=== PATIENT | female | born 1955 | race Caucasian/White ===

== ENCOUNTER 2020-09-22 08:19 | Outpatient (REF) | payer MEDICARE, SELFPAY ==
--- NOTE | ~2020-09-22 | MM_ITS ---
EXAMINATION: MM SCREENING DIGITAL BREAST TOMOSYNTHESIS, BILATERAL CLINICAL INFORMATION: Screening. Asymptomatic. The lifetime risk of breast cancer based on the Tyrer-Cuzick Model is 4%. COMPARISON: Mammography: 06/13/2019, 04/16/2018, 03/22/2017, 03/09/2017, 08/12/2015, 09/25/2013 TECHNIQUE: Digital breast tomosynthesis is performed in both the craniocaudal and mediolateral oblique views along with computer-aided detection (CAD). Synthesized 2D images are generated from the tomosynthesis. Additional exaggerated right CC view is provided. FINDINGS: The breasts are heterogeneously dense, which may obscure small masses (ACR BI-RADS breast composition Category c). There is inhomogeneous parenchymal pattern with some rounded asymmetries central inner left breast and smaller asymmetry anterior upper right breast on MLO view similar to multiple prior exams. No significant changes. No developing density or architectural abnormality. No abnormal calcifications. The axilla and skin contours are unremarkable. MM/MM tomosynthesis screening BI IMPRESSION: No significant changes from prior studies. ASSESSMENT: BI-RADS 2: Benign RECOMMENDATION: Routine annual mammography screening. This patient's information was entered into a reminder system with a target due date for their next mammogram.
== END 2020-09-22 08:20 | disposition home or self-care (01) ==
LOC: HO.MAMMO 08:19
PROVIDERS: PCP Family Medicine; Visit Provider Family Medicine
DX: Z12.31 Encounter for screening mammogram for malignant neoplasm of breast (principal)
CPT/HCPCS: 77063; 77067

== ENCOUNTER 2020-10-30 08:38 | Outpatient (REF) | payer MEDICARE, SELFPAY ==
--- NOTE | ~2020-10-30 | MM_ITS ---
EXAMINATION: BONE DENSITOMETRY CLINICAL INDICATION: Osteoporosis. COMPARISON: Baseline BD dated 08/23/2018. TECHNIQUE: Using a ENEFpro DXA System (software version: 13.1) manufactured by [employer], dual-energy x-ray absorptiometry was performed of the lumbar spine and left hip. The images are of good technical quality. Summary results are attached. FINDINGS: AP SPINE L1-L2 (excluding L3 and L4): The data of L1-L4 has been changed to exclude the L3 and L4 vertebral bodies, because degenerative changes at these levels may cause overestimation of lumbar spine density. Current: BMD 0.906 g/cm2, Z-score 0.0, T-score 2.2, osteopenia, 5.0% decrease from baseline (<5% change is not significant). Baseline: BMD 0.954 g/cm2. LEFT FEMUR, NECK: Current: BMD 0.719 g/cm2, Z-score -0.4, T-score -2.3, osteopenia. Baseline: BMD 0.671 g/cm2. LEFT FEMUR, TOTAL: Current: BMD 0.776 g/cm2, Z-score -0.1, T-score -1.8, osteopenia, 8.8% increase from baseline (<5% change is not significant). Baseline: BMD 0.713 g/cm2. IDENTIFIED RISK FACTORS: Osteoporosis, thiazide, menopause. HISTORY OF FRACTURE: None listed. MEDICATIONS: Vitamin D. MM/XR DEXA axial skeleton IMPRESSION: 1. DIAGNOSIS: Osteopenia based on the lowest T-score value of -2.3 in the femoral neck applying World Health Organization criteria. 2. 10-YEAR FRACTURE RISK PREDICTION, FRAX: Major osteoporotic fracture (clinical spine, forearm, hip or shoulder) 11.6%. Hip fracture 2.5%. 3. Treatment Recommendations: NOF guidelines recommend consideration for treatment in postmenopausal women and men age 50 and older presenting with the following: -A hip or vertebral (clinical or morphometric) fracture. -T-score less than or equal to -2.5 at the femoral neck or spine after appropriate evaluation to exclude secondary causes. -Low bone mass at the hip or spine and a 10-year fracture probability by FRAX of greater than or equal to 3% for hip fracture or greater than or equal to 20% for major osteoporotic fracture based on the [place] adapted WHO algorithm. 4. Other Recommendations: All treatment decisions require clinical judgment and consideration of individual patient factors, including patient preferences, comorbidities, previous drug use, risk factors not captured in the FRAX model (e.g. frailty, falls, vitamin D deficiency, increased bone turnover, interval significant decline in bone density) and possible under or overestimation of fracture risk by FRAX. Additional medical evaluation for secondary cause of low bone mineral density may be appropriate. FUTURE SCAN RECOMMENDATION: People with diagnosed cases of osteoporosis or at high risk for fracture should have regular bone mineral density tests. For patients eligible for Medicare, routine testing is allowed once every 2 years. The testing frequency can be increased to one year for patients who have rapidly progressing disease, those who are receiving or discontinuing medical therapy to restore bone mass, or have additional risk factors.
== END 2020-10-30 08:39 | disposition home or self-care (01) ==
LOC: HO.MAMMO 08:38
PROVIDERS: Visit Provider Family Medicine
DX: Z13.820 Encounter for screening for osteoporosis (principal); M81.0 Age-related osteoporosis without current pathological fracture; Z78.0 Asymptomatic menopausal state; Z79.899 Other long term (current) drug therapy
CPT/HCPCS: 77080

== ENCOUNTER 2021-12-18 09:07 | Outpatient (REF) | payer MEDICARE, SELFPAY ==
--- NOTE | ~2021-12-18 | MM_ITS ---
EXAMINATION: MM SCREENING DIGITAL BREAST TOMOSYNTHESIS, BILATERAL CLINICAL INFORMATION: Screening. Asymptomatic. The lifetime risk of breast cancer based on the Tyrer-Cuzick Model is 6%. COMPARISON: Mammography: 09/22/2020, 06/13/2019, 04/16/2018, 03/09/2017 TECHNIQUE: Digital breast tomosynthesis is performed in both the craniocaudal and mediolateral oblique views along with computer-aided detection (CAD). Synthesized 2D images are generated from the tomosynthesis. FINDINGS: The breasts are heterogeneously dense, which may obscure small masses (ACR BI-RADS breast composition Category c). There are no significant masses, abnormal calcifications, or other abnormalities. Parenchymal pattern is similar to prior studies. There is no developing density or architectural abnormality. The axilla and skin contours are unremarkable. No significant changes. MM/MM tomosynthesis screening BI IMPRESSION: No mammographic evidence of malignancy. ASSESSMENT: BI-RADS 1: Negative RECOMMENDATION: Routine annual mammography screening. This patient's information was entered into a reminder system with a target due date for their next mammogram.
== END 2021-12-18 09:08 | disposition home or self-care (01) ==
LOC: HO.MAMMO 09:07
PROVIDERS: PCP Family Medicine; Visit Provider Family Medicine
DX: Z12.31 Encounter for screening mammogram for malignant neoplasm of breast (principal)
CPT/HCPCS: 77063; 77067

== ENCOUNTER → 2022-08-23 15:00 | Outpatient (BNVA) | payer MEDICARE, SELFPAY | PROVIDERS: PCP Family Medicine; Visit Provider Obstetrics & Gynecology | DX: N90.89 Other specified noninflammatory disorders of vulva and perineum (principal); N85.2 Hypertrophy of uterus | CPT/HCPCS: 99202 ==

== ENCOUNTER 2022-09-02 11:19 | Outpatient (REF) | payer MEDICARE, SELFPAY ==
--- NOTE | ~2022-09-02 | US_ITS ---
EXAMINATION: US PELVIS COMPLETE CLINICAL INFORMATION: Uterine hypertrophy; postmenopausal patient. COMPARISON: Pelvic ultrasound dated 02/01/2016. TECHNIQUE: Transabdominal and transvaginal imaging were performed. FINDINGS: The uterus is of heterogeneous echotexture, measuring 13.0 x 9.6 x 10.3 cm. The uterus is anteverted and anteflexed. The endometrial stripe is not seen due to uterine fibroid disease. FIBROIDS: There is 1 fibroid seen. 1. Location: Upper rightward uterine body. Size: 9.3 x 8.2 x 7.8 cm. Prior: 8.6 x 6.6 x 7.3 cm. Fibroid characteristics: Heterogeneous echotexture. The right ovary is not visualized. The left ovary measures 2.5 x 1.4 x 1.4 cm for a volume of 2.5 mL. There is no pelvic free fluid. No adnexal mass is seen. US/US pelvic and transvaginal IMPRESSION: 1. A large uterine fibroid is redemonstrated. 2. The imaged segment is not visualized. 3. The right ovary is nonvisualized.
== END 2022-09-02 11:20 | disposition home or self-care (01) ==
LOC: HO.US 11:19
PROVIDERS: PCP Family Medicine; Visit Provider Obstetrics & Gynecology
DX: N85.2 Hypertrophy of uterus (principal)
CPT/HCPCS: 76830; 76856

== ENCOUNTER 2022-09-19 08:06 | Outpatient (REF) | payer MEDICARE, SELFPAY | END 2022-09-19 08:07 | disposition home or self-care (01) | LOC: HO.LAB 08:06 | PROVIDERS: PCP Family Medicine; Visit Provider Obstetrics & Gynecology | DX: N90.89 Other specified noninflammatory disorders of vulva and perineum (principal); D25.9 Leiomyoma of uterus, unspecified | CPT/HCPCS: 56605; 56606; 88305; 88312; 99212 ==

== ENCOUNTER → 2022-10-03 08:21 | Outpatient (BNVA) | payer MEDICARE, SELFPAY | PROVIDERS: PCP Family Medicine; Visit Provider Obstetrics & Gynecology | DX: L28.0 Lichen simplex chronicus (principal); D25.9 Leiomyoma of uterus, unspecified | CPT/HCPCS: 99212 ==

== ENCOUNTER 2023-01-31 07:18 | Outpatient (REF) | payer MEDICARE, SELFPAY | END 2023-01-31 07:19 | disposition home or self-care (01) | LOC: HO.MAMMO 07:18 | PROVIDERS: PCP Family Medicine; Visit Provider Family Medicine | DX: Z12.31 Encounter for screening mammogram for malignant neoplasm of breast (principal) | CPT/HCPCS: 77063; 77067 ==

== ENCOUNTER → 2023-01-31 07:30 | Outpatient (BNV) | payer MEDICARE, SELFPAY | PROVIDERS: PCP Family Medicine; Visit Provider Radiology Diagnostic Radiology | DX: Z12.31 Encounter for screening mammogram for malignant neoplasm of breast (principal) | CPT/HCPCS: 77063; 77067 ==

== ENCOUNTER 2024-02-06 07:19 | Outpatient (REF) | payer MEDICARE, SELFPAY ==
--- NOTE | ~2024-02-06 | MM_ITS ---
EXAMINATION: MM SCREENING DIGITAL BREAST TOMOSYNTHESIS, BILATERAL CLINICAL INFORMATION: Screening. Asymptomatic. COMPARISON: Mammography: Comparison is made with available priors TECHNIQUE: Digital breast mammography with tomosynthesis is performed in both the craniocaudal and mediolateral oblique views along with computer-aided detection (CAD). FINDINGS: The breasts are extremely dense, which lowers the sensitivity of mammography (ACR BI-RADS breast composition Category d). There are no significant masses, abnormal calcifications, or other abnormalities. MM/MM tomosynthesis screening BI IMPRESSION: No mammographic evidence of malignancy. ASSESSMENT: BI-RADS BI-RADS 1 - Negative RECOMMENDATION: Routine annual mammography screening. 1 year F/U This examination should not preclude the clinical evaluation of a suspicious palpable abnormality. This patient's information was entered into a reminder system with a target due date for their next mammogram. Electronically signed by: Kristy Silver DO 02/14/2024 12:20 PM [email or web address]
== END 2024-02-06 07:20 | disposition home or self-care (01) ==
LOC: HO.MAMMO 07:19
PROVIDERS: PCP Family Medicine; Visit Provider Family Medicine
DX: Z12.31 Encounter for screening mammogram for malignant neoplasm of breast (principal)
CPT/HCPCS: 77063; 77067

== ENCOUNTER → 2024-02-06 07:30 | Outpatient (BNV) | payer MEDICARE, SELFPAY | PROVIDERS: PCP Family Medicine; Visit Provider Internal Medicine | DX: Z12.31 Encounter for screening mammogram for malignant neoplasm of breast (principal) | CPT/HCPCS: 77063; 77067 ==

== ENCOUNTER 2024-04-05 08:24 | Outpatient (REF) | payer MEDICARE, SELFPAY ==
--- NOTE | ~2024-04-05 | MM_ITS ---
EXAMINATION: Dual-Energy X-ray Absorptiometry - Bone Density Study HISTORY: Estrogen deficiency TECHNIQUE: [facility] Dual energy absorptiometry (DEXA) of the lumbar spine, total left hip, and femoral neck was performed. COMPARISON: Comparison is made with the prior examination dated 10/30/2020. FINDINGS: The bone mineral density of the lumbar spine is 0.954 with a T-score of -1.8, and a Z-score of 0.4. This represents a BMD change of -6.0% compared to the prior exam. This is statistically significant. The bone mineral density of the left total hip is 0.770 with a T-score of -1.9, and a Z-score of 0.0. This represents BMD change of -0.8% compared to the prior exam. This is not statistically significant. The bone mineral density of the left femoral neck is 0.724 with a T-score of -2.3, and a Z-score of 0.2. This represents BMD change of 0.7% compared to the prior exam. FRACTURE RISK: The FRAX index suggests a ten year probability of major osteoporotic fracture of 12.6%, and of hip fracture 3.1%. MM/XR DEXA axial skeleton IMPRESSION: Based on bone mineral density, the diagnosis is consistent with osteopenia. All bone density values are in grams per centimeter squared. At this facility, the least significant change in BMD with 95% confidence is 0.022 at the lumbar spine, 0.027 at the hip, and 0.023 at the distal 1/3 radius. Electronically signed by: Michael Cunha MD 04/09/2024 09:44 AM EST
--- OUTSIDE RECORDS SUMMARY | 2024-04-05 08:31 | XMS_ITS | Data Portability ---
Author Organization [facility], , [facility] Address [address] [place] [address] Care Team Providers Care Restorative Care Technician Name Role Phone ELADIO CHAPIN Primary Care Provider [facility] Banking Pin Adjuster [facility] Panelboard Operator AGUSTIN BRASWELL Kicking Machine Operator REVA MILLER Kicking Machine Operator [facility] Dermatolo gist Assessment No assessment recorded. Plan of Treatment Reminders Order Date Submit Date Provider Last Modified By Organization Details Last Modified Time Details Appointments LAB Follow -Up 2024 07:50A M [facility] Lab Not available Not available Not available Medica l Manage ment 15 2024 08:15A M Eladio Chapin MD Not available Not available Not available Lab BMP, serum or plasma 2022 023 [facility], [address] [place] [address], [id number], 01/11/2023 12:00:25 lipid panel, serum 2022 023 [facility], [address] [place] [address], [address], 01/11/2023 12:00:26 TSH, serum or plasma 2022 023 [facility], [address] [place] [address], [id number], 01/11/2023 16:00:27 lipid panel, serum 2022 024 [facility], [address] [place] [address], [id number], 07/11/2023 12:49:12 BMP, serum or plasma 2023 024 [facility], [address] [place] [address], [id number], 02/13/2024 12:17:51 lipid panel, serum 2023 024 [facility], [address] [place] [address], [id number], 02/13/2024 12:17:52 TSH, serum or plasma 2023 024 [facility], [address] [place] [address], 16569, 02/13/2024 11:47:38 lipid panel, serum [address] [facility], [address] [place] [address], 37[address], 02/20/2024 08:53:08 BMP, serum or plasma [address] [facility], [address] [place] [address], 12227, 02/20/2024 08:53:08 BMP, serum or plasma [address] [facility], [address] [place] [address], 84960, 02/20/2024 08:55:31 lipid panel, serum [address] [facility], [address] [place] [address], 54534, 02/20/2024 08:55:32 TSH, serum or plasma [address] [facility], [address] [place] [address], [id number], 02/20/2024 08:55:31 Referral hand surgeo n referr al - 67 y/o with R fourth trigge r finger nonres olving with inject ion please assess 2022 023 trevon Ventura MD, [address] [place], [address], 11/18/2022 14:22:53 dermat ologis t referr al - Referr al for skin monito ring 2022 023 [facility], [address] , [place], [address], 10/20/2022 16:21:23 Procedures None record ed. Surgeries None record ed. Imaging MAMMO, screen ing, tomosy nthesi s, bilate ral 2022 023 [facility], [address] [place] [address] [place], [id number], 03/20/2023 16:28:45 MAMMO, screen ing, tomosy nthesi s, bilate ral 2023 024 [facility], [address] [place] [address] [place], [id number], 03/29/2024 11:19:25 bone densit y - last scan 1 2023 024 [email or web address] [facility], [address] [facility], [place], [id number], 02/20/2024 12:52:19 MAMMO, screen ing, tomosy nthesi s, bilate ral 2023 [facility]25 [facility] [address] [place] [address] [place], [address], 02/20/2024 09:06:19 Medication Orders None record ed. Patient TargetsNo targets recorded. Patient Instructions Encounter Date Encounter Id Patient Instructions Last Modified By Organization Details Last Modified Time 07/27/2022 [id number] -Schedule with Dr. Ventura - had injection, only partial relief, questioning surgery (would like to wait for Dr. Ventura) Meagan Ventura MD [address] [place] [phone] Ph. -Shingrix is two vaccines by 2-6 months -It is given at the pharmacy; please go there to receive it -Once you have both you are done (it is 90% effective) -The most common side effect is arm redness around the injection site and arm soreness. -Fasting labwork (nothing to eat/drink for 12 hours prior to appointment except water) -Wellness visit in 6 months Not available 07/27/2022 08:14:46 01/17/2023 [id number] advance directives: care instructions Not available 01/17/2023 10:41:33 preventing falls : care instructions Not available 01/17/2023 10:41:33 hearing loss: care instructions Not available 01/17/2023 10:41:33 well visit, over 65: care instructions Not available 01/17/2023 10:41:33 -Mammogram - max Allred to schedule -Shingrix is two vaccines by 2-6 months -It is given at the pharmacy; please go there to receive it when you're ready -Once you have both you are done (it is 90% effective) -The most common side effect is arm redness around the injection site and arm soreness. -Please get the updated COVID booster (should be at least 4 months from last booster and 3-4 months from any episode of COVID) -Fasting labwork (nothing to eat/drink for 12 hours prior to appointment except water) in 6 months Not available 01/17/2023 10:53:06 02/20/2024 [id number] advance directives: care instructions Not available 02/20/2024 08:53:08 preventing falls : care instructions Not available 02/20/2024 08:53:08 hearing loss: care instructions Not available 02/20/2024 08:53:08 well visit, over 65: care instructions Not available 02/20/2024 08:53:08 -Call for bone density: [facility] ([facility]) [address] [place] [address] Ph. -Shingrix is two vaccines by 2-6 months -It is given at the pharmacy; please go there to receive it when you're ready -Once you have both you are done (it is 90% effective) -The most common side effect is arm redness around the injection site and arm soreness. -Search 'movement meditations' for non-sitting options Not available 02/20/2024 08:59:51 Reason for Referral Media Technician Referral for N eoplasm of uncertain behavior of skin Referral for skin monitoring Referring Physician: Eladio Chapin [facility], Encounter Date: 07/27/2022 Hand Surgeon Referral for Ac quired trigger finger of right ring finger 67 y/o with R fourth trigger finger nonresolving with injection please assess Referring Physician: Eladio Chapin [facility], Encounter Date: 07/27/2022 Results Created Date Observation Date Name Description Value Unit Range Abnormal Flag Note LastModifiedBy Organization Detail LastModifiedTime 07/12/1907/12/2022 COMP. METAB OLIC PANEL glucose 99 mg/dL 70-100 Not Available [address], [address], 07/12/2022 10:27:15 07/12/19 23 07/12/2022 COMP. METAB OLIC PANEL BUN 18 mg/dL 7-18 Not Available [address], [address], 07/12/2022 10:27:15 07/12/19 23 07/12/2022 COMP. METAB OLIC PANEL creatinine 0.9 mg/dL 0.8-1. 3 Not Available [address], [address], 07/12/2022 10:27:15 04/10/07/12/2022 COMP. METAB OLIC PANEL B/C 20.0 ratio Not Available [address], [address], 07/12/2022 10:27:15 07/12/1907/12/2022 COMP. METAB OLIC PANEL GFR >=60ML /MIN mL/mi n normal >=60m L/min - Cori l or midly reduc ed <60mL /min- Decre ased kidne y funct ion <15mL /min - Kidne y failu re [facility] calcu lates estim ated Glome rular Filtr ation Rate (eGFR ) using the Chron ic Kidne y Disea se Epide miolo gy Colla borat ion (CKD- EPI) Equat ion (Daniel r et. al 2020) as recom ayo d by the Natio nal Kidne y Found ation . eGFR is based on age, serum creat inine , and sex. CKD-E PI does not calcu late eGFR by race, does not apply to child elsa (age <18 years ), and shoul d not be used in pregn katelyn. Not Available [address], [address], 07/12/2022 10:27:15 07/12/1907/12/2022 COMP. METAB OLIC PANEL sodium 144 mmol/ L 136-14 5 Not Available [address], [address], 07/12/2022 10:27:15 07/12/19 23 07/12/2022 COMP. METAB OLIC PANEL potassium 3.9 mmol/ L 3.5-5. 1 Not Available [address], [address], 07/12/2022 10:27:15 07/12/19 23 07/12/2022 COMP. METAB OLIC PANEL chloride 107 mmol/ L 96-107 Not Available [address], 85[address], 07/12/2022 10:27:15 07/12/19 23 07/12/2022 COMP. METAB OLIC PANEL anion gap 11.5 5.0-15 .0 Not Available [address], [address], 07/12/2022 10:27:15 07/12/19 23 07/12/2022 COMP. METAB OLIC PANEL CO2 26 mmol/ L 21-32 Not Available [address], [address], 07/12/2022 10:27:15 07/12/19 23 07/12/2022 COMP. METAB OLIC PANEL calcium 9.1 mg/dL 8.5-10 .3 Not Available [address], [address], 07/12/2022 10:27:15 07/12/19 23 07/12/2022 COMP. METAB OLIC PANEL total protein 6.7 g/dL 6.4-8. 2 Not Available [address], [address]64, 07/12/2022 10:27:15 07/12/19 23 07/12/2022 COMP. METAB OLIC PANEL albumin 4.0 g/dL 3.4-5. 0 Not Available [address], [address], 07/12/2022 10:27:15 07/12/19 23 07/12/2022 COMP. METAB OLIC PANEL globulin 2.7 g/dL Not Available [address], [address], 07/12/2022 10:27:15 07/12/19 23 07/12/2022 COMP. METAB OLIC PANEL A/G 1.5 ratio 0.8-2. 0 Not Available [address], [address], 07/12/2022 10:27:15 07/12/19 23 07/12/2022 COMP. METAB OLIC PANEL total bilirubin 0.50 mg/dL 0.00-1 .00 Not Available [address], [address], 07/12/2022 10:27:15 07/12/19 23 07/12/2022 COMP. METAB OLIC PANEL AST 16 U/L 0-37 Not Available [address], 46[address], 07/12/2022 10:27:15 07/12/19 23 07/12/2022 COMP. METAB OLIC PANEL ALT 19 U/L 6-63 Not Available [address], [address], 07/12/2022 10:27:15 07/12/19 23 07/12/2022 COMP. METAB OLIC PANEL alk. phos. 60 U/L 50-136 Not Available [address], [address], 07/12/2022 10:27:15 07/12/19 23 07/12/2022 LIPID PANEL cholesterol 256 mg/dL <200 mg/dl Jeff able 200-2 39 mg/dl Borde rline High >240 mg/dl High Not Available [address], [address], 07/12/2022 10:27:17 07/12/19 23 07/12/2022 LIPID PANEL triglyceride s 55 mg/dL <150 mg/dL Cori l 150-1 99 mg/dL Borde rline High 200-4 99 mg/dL High >500 mg/dL Very High Not Available [address], [address]69, 07/12/2022 10:27:17 07/12/1907/12/2022 LIPID PANEL direct HDL 90 mg/dL <40 mg/dl - Major Risk for CHD >60 mg/dl - Negat sully Risk for CHD Not Available [address], [address], 07/12/2022 10:27:17 07/12/19 23 07/12/2022 LDL - CALCU LATED LDL - calculated 155.0 RISK CATEG ORY LDL GOAL _ CHD or CHD Risk Equiv alent s <100 mg/dl (10-y ear risk >20%) 2+ Risk Facto rs <130 mg/dl (10-y ear risk <= 20%) 0-1 Risk Facto r??? <160 mg/dl ??? Almos t all peopl e with 0-1 risk facto r have a 10 year risk <10%, thus 10 year risk asses ment in peopl e with 0-1 risk facto r is not roberta castillo. Not Available [address], [address], 07/12/2022 10:27:18 01/12/2001/11/2023 BASIC METAB OLIC PANEL glucose 100 mg/dL 70-100 Not Available [address], [address], 01/11/2023 12:00:24 01/12/2001/11/2023 BASIC METAB OLIC PANEL BUN 14 mg/dL 7-18 Not Available [address], [address], 01/11/2023 12:00:24 01/12/2001/11/2023 BASIC METAB OLIC PANEL creatinine 0.9 mg/dL 0.8-1. 3 Not Available [address], [address], 01/11/2023 12:00:24 01/12/2001/11/2023 BASIC METAB OLIC PANEL B/C 15.6 ratio Not Available [address], [address], 01/11/2023 12:00:24 01/12/20 23 01/11/2023 BASIC METAB OLIC PANEL GFR >=60ML /MIN mL/mi n normal >=60m L/min - Cori l or midly reduc ed <60mL /min- Decre ased kidne y funct ion <15mL /min - Kidne y failu re [facility] calcu lates estim ated Glome rular Filtr ation Rate (eGFR ) using the Chron ic Kidne y Disea se Epide miolo gy Colla borat ion (CKD- EPI) Equat ion (Daniel r et. al 2020) as recom ayo d by the Natio nal Kidne y Found ation . eGFR is based on age, serum creat inine , and sex. CKD-E PI does not calcu late eGFR by race, does not apply to child elsa (age <18 years ), and shoul d not be used in pregn katelyn. Not Available [address], [address], 01/11/2023 12:00:24 01/12/2001/11/2023 BASIC METAB OLIC PANEL sodium 144 mmol/ L 136-14 5 Not Available [address], [address], 01/11/2023 12:00:24 01/12/2001/11/2023 BASIC METAB OLIC PANEL potassium 3.7 mmol/ L 3.5-5. 1 Not Available [address], [address], 01/11/2023 12:00:24 01/12/2001/11/2023 BASIC METAB OLIC PANEL chloride 106 mmol/ L 96-107 Not Available [address], [address]14, 01/11/2023 12:00:24 01/12/2001/11/2023 BASIC METAB OLIC PANEL anion gap 10.9 5.0-15 .0 Not Available [address], [address], 01/11/2023 12:00:24 01/12/20 23 01/11/2023 BASIC METAB OLIC PANEL CO2 27 mmol/ L 21-32 Not Available [address], [address], 01/11/2023 12:00:24 01/12/2001/11/2023 BASIC METAB OLIC PANEL calcium 9.3 mg/dL 8.5-10 .3 Not Available [address], [address], 01/11/2023 12:00:24 01/12/20 23 01/11/2023 LIPID PANEL cholesterol 249 mg/dL <200 mg/dl Jeff able 200-2 39 mg/dl Borde rline High >240 mg/dl High Not Available [address], [address], 01/11/2023 12:00:26 01/12/20 23 01/11/2023 LIPID PANEL triglyceride s 93 mg/dL <150 mg/dL Cori l 150-1 99 mg/dL Borde rline High 200-4 99 mg/dL High >500 mg/dL Very High Not Available [address], [address], 01/11/2023 12:00:26 01/12/2001/11/2023 LIPID PANEL direct HDL 90 mg/dL <40 mg/dl - Major Risk for CHD >60 mg/dl - Negat sully Risk for CHD Not Available [address], [address], 01/11/2023 12:00:26 01/12/20 23 01/11/2023 LDL - CALCU LATED LDL - calculated 140.4 RISK CATEG ORY LDL GOAL _ CHD or CHD Risk Equiv alent s <100 mg/dl (10-y ear risk >20%) 2+ Risk Facto rs <130 mg/dl (10-y ear risk <= 20%) 0-1 Risk Facto r??? <160 mg/dl ??? Almos t all peopl e with 0-1 risk facto r have a 10 year risk <10%, thus 10 year risk asses ment in peopl e with 0-1 risk facto r is not roberta chouy. Not Available [address], [address], 01/11/2023 12:00:27 01/12/20 23 01/11/2023 TSH TSH 1.41 uIU/m L 0.50-6 .00 The Ameri can Colle ge of Endoc rinol ogy and Ameri can Thyro id Assoc iatio n recom mend goal TSH value s betwe en 0.4-4 .0 mIU/m L. Not Available [address], [address], 01/11/2023 16:00:26 01/12/20 23 01/17/2023 VITAM IN D 25-HY DROXY TOTAL vitamin D 25-hydroxy EIA 42.4 NG/mL 20.0-9 9.9 Thera py is based on measu remen t of total 25-OH D, with level s less than 20 ng/mL indic ative of Vitam in D defic iency . Level s betwe en 20ng/ mL and 30 ng/mL sugge st insuf ficie ncy. Optim al Level s are great er than 30 ng/mL . Not Available [address], [address], 01/17/2023 14:16:27 07/11/19 24 07/11/2023 COMP. METAB OLIC PANEL glucose 92 mg/dL 70-100 Not Available [address], [address], 07/11/2023 12:49:10 07/11/19 24 07/11/2023 COMP. METAB OLIC PANEL BUN 22 mg/dL 7-18 high Not Available [address], [address], 07/11/2023 12:49:10 04/09/07/11/2023 COMP. METAB OLIC PANEL creatinine 0.8 mg/dL 0.8-1. 3 Not Available [address], [address], 07/11/2023 12:49:10 07/11/19 24 07/11/2023 COMP. METAB OLIC PANEL B/C 27.5 ratio Not Available [address], [address], 07/11/2023 12:49:10 07/11/19 24 07/11/2023 COMP. METAB OLIC PANEL GFR >=60ML /MIN mL/mi n normal >=60m L/min - Cori l or midly reduc ed <60mL /min- Decre ased kidne y funct ion <15mL /min - Kidne y failu re [facility] calcu lates estim ated Glome rular Filtr ation Rate (eGFR ) using the Chron ic Kidne y Disea se Epide miolo gy Colla borat ion (CKD- EPI) Equat ion (Daniel r et. al 2020) as recom ayo d by the Natio nal Kidne y Found ation . eGFR is based on age, serum creat inine , and sex. CKD-E PI does not calcu late eGFR by race, does not apply to child elsa (age <18 years ), and shoul d not be used in pregn katelyn. Not Available [address], [address], 07/11/2023 12:49:10 07/11/1907/11/2023 COMP. METAB OLIC PANEL sodium 144 mmol/ L 136-14 5 Not Available [address], [address], 07/11/2023 12:49:10 07/11/19 24 07/11/2023 COMP. METAB OLIC PANEL potassium 4.0 mmol/ L 3.5-5. 1 Not Available [address], [address], 07/11/2023 12:49:10 07/11/19 24 07/11/2023 COMP. METAB OLIC PANEL chloride 106 mmol/ L 96-107 Not Available [address], [address], 07/11/2023 12:49:10 07/11/19 24 07/11/2023 COMP. METAB OLIC PANEL anion gap 11.1 5.0-15 .0 Not Available [address], [address], 07/11/2023 12:49:10 07/11/19 24 07/11/2023 COMP. METAB OLIC PANEL CO2 27 mmol/ L 21-32 Not Available [address], [address], 07/11/2023 12:49:10 07/11/19 24 07/11/2023 COMP. METAB OLIC PANEL calcium 9.2 mg/dL 8.5-10 .3 Not Available [address], [address], 07/11/2023 12:49:10 07/11/19 24 07/11/2023 COMP. METAB OLIC PANEL total protein 6.7 g/dL 6.4-8. 2 Not Available [address], [address], 07/11/2023 12:49:10 07/11/19 24 07/11/2023 COMP. METAB OLIC PANEL albumin 3.9 g/dL 3.4-5. 0 Not Available [address], 249[address], 07/11/2023 12:49:10 07/11/19 24 07/11/2023 COMP. METAB OLIC PANEL globulin 2.8 g/dL Not Available [address], [address], 07/11/2023 12:49:10 07/11/19 24 07/11/2023 COMP. METAB OLIC PANEL A/G 1.4 ratio 0.8-2. 0 Not Available [address], [address], 07/11/2023 12:49:10 07/11/19 24 07/11/2023 COMP. METAB OLIC PANEL total bilirubin 0.40 mg/dL 0.00-1 .00 Not Available [address], 07[address], 07/11/2023 12:49:10 07/11/19 24 07/11/2023 COMP. METAB OLIC PANEL AST 14 U/L 0-37 Not Available [address], 25583, 07/11/2023 12:49:10 07/11/19 24 07/11/2023 COMP. METAB OLIC PANEL ALT 14 U/L 6-63 Not Available [address], [address], 07/11/2023 12:49:10 07/11/19 24 07/11/2023 COMP. METAB OLIC PANEL alk. phos. 63 U/L 50-136 Not Available [address], [address], 07/11/2023 12:49:10 07/11/19 24 07/11/2023 LIPID PANEL cholesterol 295 mg/dL <200 mg/dl Jeff able 200-2 39 mg/dl Borde rline High >240 mg/dl High Not Available [address], 67[address], 07/11/2023 12:49:12 07/11/19 24 07/11/2023 LIPID PANEL triglyceride s 79 mg/dL <150 mg/dL Cori l 150-1 99 mg/dL Borde rline High 200-4 99 mg/dL High >500 mg/dL Very High Not Available [address], [address], 07/11/2023 12:49:12 07/11/19 24 07/11/2023 LIPID PANEL direct HDL 94 mg/dL <40 mg/dl - Major Risk for CHD >60 mg/dl - Negat sully Risk for CHD Not Available [address], [address], 07/11/2023 12:49:12 07/11/19 24 07/11/2023 LDL - CALCU LATED LDL - calculated 185.2 RISK CATEG ORY LDL GOAL _ CHD or CHD Risk Equiv alent s <100 mg/dl (10-y ear risk >20%) 2+ Risk Facto rs <130 mg/dl (10-y ear risk <= 20%) 0-1 Risk Facto r??? <160 mg/dl ??? Almos t all peopl e with 0-1 risk facto r have a 10 year risk <10%, thus 10 year risk asses ment in peopl e with 0-1 risk facto r is not roberta castillo. Not Available [address], [address], 07/11/2023 12:49:13 02/13/20 24 02/13/2024 CBC WBC 3.98 K/??L 3.98-1 0.04 Not Available [address], [address], 02/13/2024 09:29:37 02/13/20 24 02/13/2024 CBC RBC 4.21 M/??L 3.93-5 .22 Not Available [address], [address], 02/13/2024 09:29:37 02/13/20 24 02/13/2024 CBC HGB 13.5 g/dL 11.2-1 5.7 Not Available [address], [address]96, 02/13/2024 09:29:37 11/12/02/13/2024 CBC HCT 41.5 % 34.1-4 4.9 Not Available [address], [address]97, 02/13/2024 09:29:37 02/13/20 24 02/13/2024 CBC MCV 98.6 fL 79.4-9 4.8 high Not Available [address], 85872, 02/13/2024 09:29:37 02/13/20 24 02/13/2024 CBC MCH 32.1 pg 25.6-3 2.2 Not Available [address], 11984, 02/13/2024 09:29:37 02/13/20 24 02/13/2024 CBC MCHC 32.5 g/dL 32.2-3 5.5 Not Available [address], [address]221, 02/13/2024 09:29:37 02/13/2002/13/2024 CBC plt 172 K/??L 182-36 9 low Not Available [address], [address]134, 02/13/2024 09:29:37 02/13/20 24 02/13/2024 CBC MPV 11.6 fL 9.4-12 .3 Not Available [address], 82075, 02/13/2024 09:29:37 02/13/20 24 02/13/2024 CBC neut% 49.4 % 34.0-7 1.1 Not Available [address], 75135, 02/13/2024 09:29:37 02/13/20 24 02/13/2024 CBC neut# 1.97 1.56-6 .13 Not Available [address], 8[address]99, 02/13/2024 09:29:37 02/13/20 24 02/13/2024 CBC lymph % 33.9 % 19.3-5 1.7 Not Available [address], 12082, 02/13/2024 09:29:37 02/13/20 24 02/13/2024 CBC lymph # 1.35 K/??L 1.18-3 .74 Not Available [address], [address], 02/13/2024 09:29:37 02/13/20 24 02/13/2024 CBC mono% 10.1 % 4.7-12 .5 Not Available [address], 00136, 02/13/2024 09:29:37 02/13/20 24 02/13/2024 CBC mono# 0.40 0.24-0 .56 Not Available [address], [address]62, 02/13/2024 09:29:37 02/13/20 24 02/13/2024 CBC eo% 5.3 % 0.7-5. 8 Not Available [address], 35471, 02/13/2024 09:29:37 02/13/20 24 02/13/2024 CBC eo# 0.21 0.04-0 .36 Not Available [address], [address], 02/13/2024 09:29:37 02/13/20 24 02/13/2024 CBC baso% 1.3 % 0.1-1. 2 high Not Available [address], 960[address], 02/13/2024 09:29:37 02/13/20 24 02/13/2024 CBC baso# 0.05 0.00-0 .08 Not Available [address], [address]14, 02/13/2024 09:29:37 02/13/20 24 02/13/2024 CBC RDW-CV 12.2 % 11.7-1 4.4 Not Available [address], [address], 02/13/2024 09:29:37 02/13/20 24 02/13/2024 CBC Ig% 0.000 % 0.000- 1.500 Ig % >0.5 Indic ates possi ble Left Shift Not Available [address], [address]78, 02/13/2024 09:29:37 02/13/20 24 02/13/2024 CBC Ig# 0.000 0.000- 0.093 Not Available [address], [address], 02/13/2024 09:29:37 02/13/20 24 02/13/2024 CBC NRBC% 0.0 % 0.0-0. 2 Not Available [address], [address]49, 02/13/2024 09:29:37 02/13/20 24 02/13/2024 CBC NRBC# 0.000 0.000- 0.012 Not Available [address], [address], 02/13/2024 09:29:37 02/13/20 24 02/13/2024 VITAM IN D 25-HY DROXY TOTAL vitamin D 25-hydroxy EIA 52.3 NG/mL 20.0-9 9.9 Thera py is based on measu remen t of total 25-OH D, with level s less than 20 ng/mL indic ative of Vitam in D defic iency . Level s betwe en 20ng/ mL and 30 ng/mL sugge st insuf ficie ncy. Optim al Level s are great er than 30 ng/mL . Not Available [address], [address], 02/13/2024 11:43:50 02/13/20 24 02/13/2024 TSH TSH 3.84 uIU/m L 0.50-6 .00 The Ameri can Colle ge of Endoc rinol ogy and Ameri can Thyro id Assoc iatio n recom mend goal TSH value s betwe en 0.4-4 .0 mIU/m L. Not Available [address], [address], 02/13/2024 11:47:38 02/13/20 24 02/13/2024 BASIC METAB OLIC PANEL glucose 92 mg/dL 70-100 Not Available [address], 4[address], 02/13/2024 12:17:51 02/13/20 24 02/13/2024 BASIC METAB OLIC PANEL BUN 20 mg/dL 7-18 high Not Available [address], [address]131, 02/13/2024 12:17:51 02/13/20 24 02/13/2024 BASIC METAB OLIC PANEL creatinine 1.0 mg/dL 0.8-1. 3 Not Available [address], [address], 02/13/2024 12:17:51 02/13/20 24 02/13/2024 BASIC METAB OLIC PANEL B/C 20.0 ratio Not Available [address], 94168, 02/13/2024 12:17:51 02/13/20 24 02/13/2024 BASIC METAB OLIC PANEL GFR >=60ML /MIN mL/mi n normal >=60m L/min - Cori l or midly reduc ed <60mL /min- Decre ased kidne y funct ion <15mL /min - Kidne y failu re [facility] calcu lates estim ated Glome rular Filtr ation Rate (eGFR ) using the Chron ic Kidne y Disea se Epide miolo gy Colla borat ion (CKD- EPI) Equat ion (Daniel r et. al 2020) as recom ayo d by the [employer]anie paez . eGFR is based on age, serum creat inine , and sex. CKD-E PI does not calcu late eGFR by race, does not apply to child elsa (age <18 years ), and shoul d not be used in pregn katelyn. Not Available [address], [address], 02/13/2024 12:17:51 02/13/20 24 02/13/2024 BASIC METAB OLIC PANEL sodium 144 mmol/ L 136-14 5 Not Available [address], [address], 02/13/2024 12:17:51 02/13/20 24 02/13/2024 BASIC METAB OLIC PANEL potassium 4.5 mmol/ L 3.5-5. 1 Not Available [address], [address], 02/13/2024 12:17:51 02/13/20 24 02/13/2024 BASIC METAB OLIC PANEL chloride 106 mmol/ L 96-107 Not Available [address], [address], 02/13/2024 12:17:51 02/13/20 24 02/13/2024 BASIC METAB OLIC PANEL anion gap 9.3 5.0-15 .0 Not Available [address], [address], 02/13/2024 12:17:51 02/13/20 24 02/13/2024 BASIC METAB OLIC PANEL CO2 29 mmol/ L 21-32 Not Available [address], [id number], 02/13/2024 12:17:51 02/13/20 24 02/13/2024 BASIC METAB OLIC PANEL calcium 9.5 mg/dL 8.5-10 .3 Not Available [address], [address], 02/13/2024 12:17:51 02/13/2002/13/2024 LIPID PANEL cholesterol 292 mg/dL <200 mg/dl Jeff able 200-2 39 mg/dl Borde rline High >240 mg/dl High Not Available [address], [address], 02/13/2024 12:17:52 02/13/20 24 02/13/2024 LIPID PANEL triglyceride s 67 mg/dL <150 mg/dL Cori l 150-1 99 mg/dL Borde rline High 200-4 99 mg/dL High >500 mg/dL Very High Not Available [address], [address], 02/13/2024 12:17:52 02/13/20 24 02/13/2024 LIPID PANEL direct HDL 105 mg/dL <40 mg/dl - Major Risk for CHD >60 mg/dl - Negat sully Risk for CHD Not Available [address], [address], 02/13/2024 12:17:52 02/13/2002/13/2024 ALBUM IN albumin 4.0 g/dL 3.4-5. 0 Not Available [address], [address], 02/13/2024 12:17:52 02/13/2002/13/2024 PHOSP HOROU S phosphorous 3.70 mg/dL 2.50-4 .90 Not Available [address], [address], 02/13/2024 12:17:53 02/13/2002/13/2024 LDL - CALCU LATED LDL - calculated 174 RISK CATEG ORY LDL GOAL _ CHD or CHD Risk Equiv alent s <100 mg/dl (10-y ear risk >20%) 2+ Risk Facto rs <130 mg/dl (10-y ear risk <= 20%) 0-1 Risk Facto r??? <160 mg/dl ??? Almos t all peopl e with 0-1 risk facto r have a 10 year risk <10%, thus 10 year risk asses ment in peopl e with 0-1 risk facto r is not roberta castillo. Not Available [facility] [address] [facility], [place], [address], 02/13/2024 12:17:54 02/23/20 23 01/31/2023 MAMMO , scree steve No observ ation record ed. [address] [place], [address], 02/22/2023 08:18:41 02/14/20 24 02/06/2024 MAMMO , scree steve No observ ation record ed. [email or web address] [address] [place], [address], 02/14/2024 15:44:36 Result Notes None recorded. Problems Name Problem SNOMED Code Status Onset Date Resolution Date Notes Provider Name and Address Organization Details Recorded Time Hypothyroi dism 38675753 Active Not Available [facility] 3 10:56:29 Hypertensi ve disorder 63541533 Active Not Available [facility] 3 10:56:29 Headache 28142479 Active 2016 Not Available [facility] 3 10:56:29 Osteoporos is 76805853 Active Not Available [facility] 3 10:56:29 Diverticul osis of colon 523336865 Active 2020 Not Available [facility] 3 10:56:29 Internal hemorrhoid s 32545621 Active 2020 Not Available [facility] 3 10:56:29 Migraine 19793366 Active Not Available [facility] 3 10:56:29 Genital lichen sclerosus 179533607 Active 2022 Not Available [facility] 3 10:56:29 Hyperlipid emia 54317590 Active 2023 Eladio Chapin [address] [place], [address] , [facility] 4 08:57:45 Chest pain 61426368 Completed 02/20/2013 Not Available [facility] 3 02:01:46 Problem Notes None recorded. Procedures Surgical History Date Name Laterality Status Provider Name and Address Organization Details Recorded Time 02/20/20 24 Medicare Wellness Visit completed Shweta Wright [facility] 02/19/2024 17:44:54 02/20/20 24 Cardiovascular disease risk reduction counseling completed Eladio Chapin [address] [place], [address], [facility] 02/20/2024 08:58:54 01/18/20 23 Medicare Wellness Visit completed Lor Foy [facility] 01/09/2023 14:14:25 01/18/20 23 Cardiovascular disease risk reduction counseling completed Eladio Chapin [address] [place], [address], [facility] 01/17/2023 10:39:24 01/18/20 23 Advanced Care Planning completed Lor Foy MA [facility] 01/09/2023 14:14:26 01/14/20 22 Medicare Wellness Visit completed Lor Foy [facility] 01/10/2022 16:47:52 01/14/20 22 Alcohol use screening completed Lor Foy MA [facility] 01/10/2022 16:47:52 01/14/20 22 Cardiovascular disease risk reduction counseling completed Lor Foy MA [facility] 01/10/2022 16:47:52 01/14/20 22 Advanced Care Planning completed Lor Foy MA [facility] 01/10/2022 16:47:59 10/01/19 21 Medicare Wellness Visit completed Jerri Yanez MA [facility] 09/29/2020 10:07:00 10/01/19 21 prevention-cardiov ascular risk reduction counseling completed Jerri Yanez MA [facility] 09/29/2020 10:07:00 10/01/19 21 prevention-annual alcohol misuse screening completed Jerri Yanez MA [facility] 09/29/2020 10:07:00 10/01/19 21 Advanced Care Planning completed Eladio Chapin [address] [place], [address], [facility] 09/30/2020 11:46:33 09/24/19 20 Medicare Wellness Visit completed Jolene Cherry [facility] 09/24/2019 09:31:53 09/24/19 20 prevention-cardiov ascular risk reduction counseling completed Jolene Cherry [facility] 09/24/2019 09:31:53 09/24/19 20 prevention-annual alcohol misuse screening completed Jolene Cherry [facility] 09/24/2019 09:31:53 08/16/19 19 Medicare Wellness Visit completed Eladio Chapin [address] [place], [address], [facility] 08/15/2018 11:25:30 04/03/18 94 Tubal Ligation completed Eladio Chapin [address] [place], [address], [facility] 06/09/2011 16:08:18 Imaging Results Imaging Date Name Status LastModified by Organiz ation Details LastModified Time 01/31/2023 MAMMO, screening completed [address] [place], [address], 02/22/2023 08:18:41 02/06/2024 MAMMO, screening completed [email or web address] [address] [place], [address], 02/14/2024 15:44:36 Procedure Notes None recorded. Medical Equipment None Reported. Allergies Allergen ID Allergen Name Allergen Category Reaction Reaction Severity Criticality Documentation Date Start Date Code Code System Note Provider Name and Address Organization Details Recorded Time 204087 nickel environme nt rash Not available Not available 01/17/2023 85371 29 RxNorm Evelyn Smith MA [facility] 3 10:26:34 No known drug allergies Medications Name Sig Start Date Stop Date Status Note LastModified by Organization Details LastModified Time amoxicill in 500 mg capsule TAKE 1 CAPSULE BY MOUTH 3 TIMES A DAY 07/17 completed Not Available Not Available Not Available Augmentin 875 mg-125 mg tablet Take 1 tablet every 12 hours by oral route for 10 days. 08/15 completed Not Available Not Available Not Available ivermecti n 3 mg tablet TAKE 4 TABLETS ONCE REPEAT IN 9 DAYS. 09/23 completed Not using 0 SD Not Available Not Available Not Available famotidin e 10 mg tablet Take 1 tablet every day by oral route. 04/17 completed Not Available Not Available Not Available triamcino lone acetonide 0.5 % topical cream APPLY THIN COAT TO AFFECTED AREA TWICE A DAY 09/23 completed Not using 0 SD Not Available Not Available Not Available hydrocodo ne 5 mg-acetam inophen 325 mg tablet TAKE 1 TABLET BY MOUTH EVERY 6 HOURS NEEDED FOR PAIN 07/17 completed Not Available Not Available Not Available clobetaso l 0.05 % topical cream APPLY A PEA SIZED AMOUNT TO THE AFFECTED AREA TWICE WEEKLY active Not Available Not Available No t Available topiramat e 25 mg tablet TAKE 1/2 TABLET BY MOUTH EVERY DAY active Not Available Not Available No t Available potassium chloride ER 10 mEq tablet,ex tended release TAKE 3 TABLETS EVERY DAY BY ORAL ROUTE FOR 90 DAYS. 05/13 completed Not taking 2 OMARI Not Available Not Available Not Available amoxicill in 500 mg tablet TAKE 1 TABLET BY MOUTH EVERY 8 HOURS UNTIL FINISHED 07/27 completed Not Available Not Available Not Available levothyro xine 75 mcg tablet TAKE 1 TABLET BY MOUTH EVERY DAY 2023 active Not Available Not Available Not Avai lable levothyro xine 88 mcg tablet TAKE 1 TABLET BY MOUTH EVERY DAY AND 1/2 TABLET ON Sundays completed not using 04/19/22 penny Not Available Not Available Not Available famotidin e 20 mg tablet TAKE 1 TABLET BY MOUTH TWICE A DAY 09/30 completed Not taking 1 OMARI Not Available Not Available Not Available amitripty line 25 mg tablet Take 1 tablet every day by oral route for 30 days. 2011 active Not Available Not Available Not Avai lable amitripty line 10 mg tablet Take 1 tablet every day by oral route at bedtime for 30 days. 2013 active Not Available Not Available Not Avai lable levothyro xine 50 mcg tablet Take 1 tablet every day by oral route for 30 days. 2011 active Not Available Not Available Not Avai lable triamcino lone acetonide 0.1 % topical ointment APPLY A THIN LAYER TO AFFECTED AREA TWICE A DAY 08/07 completed not using 08/08/2019 omari Not Available Not Available Not Available lisinopri l 10 mg tablet TAKE 1 TABLET BY MOUTH EVERY DAY active Not Available Not Available No t Available diclofena c potassium 50 mg tablet TAKE 1 TABLET BY MOUTH 3 TIMES A DAY NEEDED 2012 active Not Available Not Available Not Avai lable omeprazol e 20 mg capsule,d elayed release TAKE ONE CAPSULE BY MOUTH EVERY DAY 09/11 completed Not Available Not Available Not Available hydrochlo rothiazid e 25 mg tablet TAKE 1 TABLET BY MOUTH EVERY DAY 05/13 completed Not taking 2 OMARI Not Available Not Available Not Available Aspir-81 mg tablet,de layed release Take 1 tablet every day by oral route. active Not Available Not Available No t Available betametha sone dipropion ate 0.05 % topical ointment APPLY A THIN LAYER TO THE AFFECTED AREA TWICE DAILY FOR TWO WEEKS 09/23 completed Not using 0 SD Not Available Not Available Not Available fluticaso ne propionat e 50 mcg/actua tion nasal spray,baldemar pension USE 1 SPRAY INTRANAS ALLY EVERY DAY active Not Available Not Available No t Available loratadin e 10 mg tablet Take 1 tablet every day by oral route. 09/23 completed Not taking 0 SD Not Available Not Available Not Available Estrace 0.01% (0.1 mg/gram) vaginal cream USE 2GRAMS NIGHTLY FOR 2WEEKS THEN 1GRAM NIGHTLY 1 TO 2 TIMES PER WEEK NEEDED FOR DRYNESS 08/09 completed Not currentl y using Not Available Not Available Not Available Allergy Relief D-24hr 10 mg-240 mg tablet,ex tended release TAKE 1 TABLET EXTENDED RELEASE 24 HR ORAL DAILY IN THE MORNING (OTC NOT COVERED) 02/19 completed Not Available Not Available Not Available topiramat e 50 mg tablet TAKE 1 TABLET BY MOUTH AT BEDTIME 09/11 completed Taking half JG 09-11-18 Not Available Not Available Not Available chlorhexi dine gluconate 0.12 % mouthwash SWISH AND SPIT WITH 10 ML 3 TIMES A DAY 07/17 completed Not Available Not Available Not Available levothyro xine Take 75MCG Daily active Not Available Not Available No t Available biotin 07/27 completed Not Available Not Available Not Available Vitamin D 2000 units daily active Not Available Not Available No t Available Zostavax (PF) 19,400 unit/0.65 mL subcutane ous suspensio n 08/08 completed Not Available Not Available Not Available cholecalc iferol (vitamin D3) 1,250 mcg (50,000 unit) capsule TAKE ONE CAPSULE BY MOUTH ONE TIME PER WEEK 03/07 completed Not Available Not Available Not Available potassium chloride ER 20 mEq tablet,ex tended release Take 1 tablet every day by oral route for 10 days. 05/13 completed taking 30 1 OMARI Not Available Not Available Not Available clobetaso l 0.025 % topical cream APPLY A THIN LAYER TO THE AFFECTED AREA(S) BY TOPICAL ROUTE 2 TIMES PER DAY ; RUB IN GENTLY AND COMPLETE LY 02/19 completed Ordered by OBGYN trial for 6 weeks Not Available Not Available Not Available Fluad Quad [id number] (65yr up)(PF) 60 mcg (15 mcg x 4)/0.5mL IM syringe PHARMACY ADMINIST ERED 09/30 completed Not Available Not Available Not Available Flowflex COVID-19 Antigen Home Test kit USE DIRECTED 01/17 completed Not Available Not Available Not Available Vitals Date Recorded Body height Body mass index (BMI) Body weight Heart rate Systolic blood pressure Diastolic blood pressure Provider Name and Address Organization Details Last Updated DateTime 3 152.4 cm 21.9 kg/m2 13128.0 5 g 71 /min 146 mm[Hg] 74 mm[Hg] Vale Blake [facility] 3 08:33:16 Date Recorded Systolic blood pressure Diastolic blood pressure Provider Name and Address Organization Details Last Updated DateTime 04/19/2022 142 mm[Hg] 80 mm[Hg] ANGELIA Yañez [address] [place], [address], [facility] 04/19/2022 08:52:50 Date Recorded Body height Body mass index (BMI) Body weight Heart rate Systolic blood pressure Diastolic blood pressure Provider Name and Address Organization Details Last Updated DateTime 3 152.4 cm 21.7 kg/m2 21219.4 5 g 68 /min 128 mm[Hg] 68 mm[Hg] Latrice Holden CMA [facility] 3 08:01:38 Date Recorded Body height Body mass index (BMI) Body weight Heart rate Systolic blood pressure Diastolic blood pressure Provider Name and Address Organization Details Last Updated DateTime 3 152.4 cm 21.2 kg/m2 58475.0 8 g 68 /min 132 mm[Hg] 74 mm[Hg] Evelyn Smith [facility] 3 10:29:41 Date Recorded Systolic blood pressure Diastolic blood pressure Provider Name and Address Organization Details Last Updated DateTime 01/17/2023 129 mm[Hg] 69 mm[Hg] Eladio Chapin [address] [place], [address], [facility] 01/17/2023 10:55:51 Date Recorded Body height Body mass index (BMI) Body weight Heart rate Systolic blood pressure Diastolic blood pressure Provider Name and Address Organization Details Last Updated DateTime 4 152.4 cm 21.3 kg/m2 82943.5 7 g 88 /min 100 mm[Hg] 70 mm[Hg] Lianet vivas Rona [facility] 4 08:17:45 Date Recorded Body height Body mass index (BMI) Body weight Oxygen saturation Oxygen saturation in Arterial blood by Pulse oximetry Heart rate Systolic blood pressure Diastolic blood pressure Provider Name and Address Organization Details Last Updated DateTime 4 152.4 cm 22 kg/m2 27333.1 5 g 99 % 99 % 76 /min 124 mm[Hg] 72 mm[Hg] Shweta Wright [facility] 4 08:38:28 Date Recorded Systolic blood pressure Diastolic blood pressure Systolic blood pressure Diastolic blood pressure Systolic blood pressure Diastolic blood pressure Provider Name and Address Organization Details Last Updated DateTime 3 115 mm[Hg] 58 mm[Hg] 125 mm[Hg] 62 mm[Hg] 121 mm[Hg] 60 mm[Hg] Vale Blake [facility] 3 10:14:27 Social History Question Answer Notes LastModified by Organizat ion Details LastModified Time Tobacco Smoking Status [facility] 05/17/2011 08:14:54 What Is Your Level Of Alcohol Consumption? None Rare [email or web address] Information not available 09/24/2019 Do You Wear A Helmet When Biking? Yes Information not available 08/08/2016 What Is Your Level Of Caffeine Consumption? Moderate 2 Cups Of Coffee Daily Information not available 02/20/2024 How Much Tobacco Do You Chew? None Information not available 08/04/2015 Are You Currently Employed? No Information not available 01/17/2023 What Type Of Diet Are You Following? REGULAR Information not available 02/20/2024 Which Illicit Or Recreational Drugs Have You Used? None Information not available 08/04/2015 Do You Or Have You Ever Used E-cigarettes Or Vape? Never Used Electronic Cigarettes Information not available 09/30/2020 What Is The Highest Grade Or Level Of School You Have Completed Or The Highest Degree You Have Received? 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 No Information not available 01/17/2023 When Did You Quit Smoking? 16+yearssince [email or web address] Information not available 08/04/2015 Are There Any Guns Present In Your Home? No Information not available 05/17/2011 Does The Patient Have Difficulty Speaking Spanish? No Information not available 08/04/2015 Does The Patient Have Difficulty Reading Spanish? No Information not available 08/04/2015 Patient Has Health Care Proxy Signed And In Chart Yes Would Be Son - Lemuel Duong ([phone]) stpick Information not available 10/22/2019 MOLST Form Signed And In Chart 07/21/2023 [email or web address] Information not available 07/21/2023 CCM Consent Discussion 09/30/2020 [email or web address] Information not available 10/08/2020 What Was The Date Of Your Most Recent Tobacco Screening? 01/17/2023 [email or web address] Information not available 01/17/2023 How Many Children Do You Have? 1 Son - Sumanth ([place]) [email or web address] Information not available 05/17/2011 What Is Your Current Pack Years? 10year s Information not available 08/04/2015 What Is Your Relationship Status? Michael Brown (stage V Appendiceal Cancer - 2015), Then Dog In June 2016 Information not available 01/17/2023 Do You Use Your Seat Belt Or Car Seat Routinely? Yes Information not available 01/17/2023 Are You Sexually Active? No Information not available 01/17/2023 Do You Have Smoke And Carbon Monoxide Detectors In Your Home? Yes Information not available 01/17/2023 Are You Passively Exposed To Smoke? No Information not available 01/17/2023 Do You Or Have You Ever Used Smokeless Tobacco? Never Used Smokeless Tobacco Information not available 09/30/2020 How Much Tobacco Do You Smoke? No Information not available 09/30/2020 What Types Of Sporting Activities Do You Participate In? None Information not available 08/04/2015 Do You Use Sunscreen Routinely? Yes Sometimes Information not available 05/17/2011 Sex: Female Functional Status Question Answer Note LastModified by Organizat ion Details LastModified Time What is your exercise level? Moderate walking 2 miles daily with sister, plans to restart lifting weights Information not available 02/20/2024 Mental Status None recorded. Family History Relationship Description Onset Age of this Age Resolved Age Notes LastModified by Organization Details LastModified Time Brother Malignant tumor of lung 48 hx tobacc o Not available 08/04/2015 09:27:35 Maternal Aunt Myocardial infarction 70 Not available 06/2015 09:27:35 Brother Heart disease abnorm al rhythm Not available 08/04/2015 09:27:35 Maternal Aunt Malignant tumor of breast 58 Not available 08/03 09:27:35 Maternal Aunt Coronary arterioscler osis [email or web address] Not available 2022 08:20:36 Maternal Aunt Coronary arterioscler osis [email or web address] Not available 2022 08:20:36 Mother Hypothyroidi sm [email or web address] Not available 2022 08:20:36 Mother Hyponatremia ?versu s electr olyte imbala nce [email or web address] Not available 04/19/2022 08:20:36 Mother Atrial fibrillation [email or web address] Not available 08:20:36 Mother Dementia 88 curren tly 92 - - LS Not available 01/13/2022 14:03:36 Mother Polymyalgia rheumatica [email or web address] Not available 04/19 08:20:36 Sister Hypothyroidi sm [email or web address] Not available 2022 08:20:36 Sister Rheumatoid arthritis Not available 08/03 09:27:35 Son Asthma Not available 08/04/2015 09:27:35 Notes:No family hx of DM, co jeronimo [place] Medical History Condition Response Anxiety Y Chronic Neck Pain Y Depression Y Hypothyroid Y Hypertension Y Gynecological History Statement/Question Response Menses Monthly N HPV N History of Abnormal Pap N Age at Menarche 11 Date of LMP Obstetrics History GPAL:G 0 P 0 0 0 0 Immunizations Vaccine Type Date Status Note Provider Nam e and Address Organization Details Recorded Time Tdap 2 completed Not Available [facility] 04/20/2019 02:15:45 Hep B, adolescent or pediatric 0 completed Not Available [facility] 09/22/2022 12:14:13 Hep B, adolescent or pediatric 0 completed Not Available [facility] 09/22/2022 12:14:13 Hep B, adolescent or pediatric 0 completed Not Available [facility] 09/22/2022 12:14:13 influenza, unspecified formulation 6 completed Not Available [facility] 09/22/2022 12:14:13 zoster live 7 completed Not Available [facility] 09/22/2022 12:14:13 Pneumococcal conjugate PCV 13 9 completed Not Available [facility] 04/20/2019 02:31:46 Influenza, split virus, quadrivalent, preservative 7 completed Not Available [facility] 09/22/2022 12:14:13 Influenza, split virus, quadrivalent, preservative 8 completed Not Available [facility] 09/22/2022 12:14:13 Influenza, split virus, quadrivalent, preservative 9 completed Not Available [facility] 09/22/2022 12:14:13 pneumococcal polysaccharide PPV23 1 [facility] 09/30/2020 11:48:07 Influenza, split virus, quadrivalent, preservative 0 completed Not Available [facility] 09/22/2022 12:14:13 Td (adult), 2 Lf tetanus toxoid, preservative free, adsorbed 2 completed PIPER Gonzales, [facility] 05/13/2021 08:24:02 COVID-19, mRNA, LNP-S, PF, 30 mcg/0.3 mL dose 1 completed Not Available [facility] 09/22/2022 12:14:13 COVID-19, mRNA, LNP-S, PF, 30 mcg/0.3 mL dose 1 completed Not Available [facility] 09/22/2022 12:14:13 Influenza, high-dose, quadrivalent, PF 1 completed Not Available [facility] 09/22/2022 12:14:13 COVID-19, mRNA, LNP-S, PF, 30 mcg/0.3 mL dose, brie-sucrose 1 completed Not Available [facility] 09/22/2022 12:14:13 influenza, unspecified formulation 2 completed Not Available [facility] 09/22/2022 12:14:13 Influenza, split virus, quadrivalent, PF 3 completed Umu Villalta RN null, [facility] 03/14/2023 09:18:04 Influenza, high-dose, trivalent, PF 4 completed Lianet Hope RN null, [facility] 01/31/2024 17:22:38 Past Encounters Encounter ID Performer Location Encounter Start Date Encounter Closed Date Diagnosis/Indication Diagnosis SNOMED-CT Code Diagnosis ICD10 Code [id number] [facility], OFFICE [address] [place] [id number] 6 05/17/2011 07:48:12 05/17/2011 08:59:35 [id number] [facility], OFFICE [address] [place] [address] [id number] 06/09/2011 15:30:44 06/09/2011 16:40:33 [id number] [facility] , [address] [id number] 06/13/2011 09:20:47 06/16/2011 14:11:54 [id number] Jennifer Asif LPN [facility], OFFICE [address] [place] [id number] 07/19/2011 11:17:16 07/19/2011 12:03:11 [id number] [facility], OFFICE [address] [place] [id number] 6 09/05/2011 12:04:43 09/05/2011 13:06:35 [id number] [facility], OFFICE [address] [place] [id number] 10/13/2011 11:22:36 10/13/2011 12:14:06 [id number] [facility], OFFICE [address] [place] [address] [id number] 6 10/08/2012 08:50:11 10/08/2012 09:18:33 [id number] Diane WASHBURN, [facility], OFFICE [address] [place] [address] [id number] 6 01/01/2013 09:18:25 01/01/2013 10:17:23 Essential hypertension 53935022 [id number] Joselin Callahan LPN , [facility], OFFICE [address] [place] [address] [id number] 6 02/18/2014 08:22:38 02/18/2014 09:12:39 Adult health examination [id number] Essential hypertension 04304217 Hyperlipidemia 12234072 [id number] Diane WASHBURN, [facility], OFFICE [address] [place] [address] [id number] 6 07/24/2014 10:39:52 07/24/2014 11:18:54 Essential hypertension 93054652 Hyperlipidemia 59418404 [id number] Eladio WASHBURN, [facility], OFFICE [address] [place] [address] [id number] 6 03/12/2015 11:47:06 03/12/2015 13:19:52 Neck pain 68050061 M54.2 [id number] Beryl WASHBURN, [facility], OFFICE [address] [place] [address] [id number] 6 08/04/2015 08:55:55 08/04/2015 09:53:30 Adult health examination 901305819 Z00.00 Screening for malignant neoplasm of colon 545867400 Z12.11 Screening for disorder 868136604 Z11.59 Hypothyroidism 49579804 E03.9 Neck pain 56752220 M54.2 Essential hypertension 28213846 I10 [id number] Eladio WASHBURN, [facility], OFFICE [address] [place] [address] [id number] 6 12/17/2015 08:56:35 12/17/2015 09:36:49 Hypertensive disorder 18042173 I10 Hypothyroidism 27354681 E03.9 Hyperlipidemia 77032794 E78.5 Sprain of shoulder rotator cuff 7296358682 04 S43.422A [id number] Eladio WASHBURN, [facility], OFFICE [address] [place] [address] [id number] 6 04/13/2016 09:07:45 04/13/2016 10:02:45 Decreased active range of shoulder flexion 428535228 R29.898 Abnormal v aginal bleeding 318749582 N93.9 [id number] Eladio Chapin , [facility], OFFICE [address] [place] [address] [id number] 6 08/08/2016 08:24:26 08/08/2016 09:25:10 Adult health examination 859590176 Z00.00 Counseling 188319012 Z71 .9 Screening for malignant neoplasm of colon 676155422 Z12.11 Hypertensive disorder 38 418254 I10 Hypothyroidism 97541640 E03.9 Headache 20673589 R51 [id number] Eladio Chapin , [facility], OFFICE [address] [place] [address] [phone] 6 02/06/2017 08:57:40 02/06/2017 09:33:35 Hypertensive disorder 75879747 I10 Hypothyroidism 87089108 E03.9 Fatigue 01976043 R53.83 [id number] Eladio Chapin , [facility], OFFICE [address] [place] [address] [id number] 6 06/26/2017 10:04:15 06/26/2017 10:33:40 Dysfunction of eustachian tube 60334551 H69.91 Allergic rhinitis 524394 04 J30.9 [id number] Eladio Chapin , [facility], OFFICE [address] [place] [address] [id number] 6 08/09/2017 08:27:07 08/09/2017 09:05:42 Adult health examination 500746119 Z00.00 Depression screening 171 897670 Z13.89 Hypothyroidism 23260854 E03.9 Hypertensive disorder 38 851070 I10 Eruption [id number] R21 [id number] Eladio WASHBURN, [facility], OFFICE [address] [place] [address] [id number] 6 07/25/2018 11:19:03 07/25/2018 13:50:10 Postmenopausal state 85584206 Z78.0 Screening for malignant neoplasm of colon 037812418 Z12.11 Active or passive immunization 844011575 Z23 Acute sinusitis 60060170 J01.90 [id number] Eladio WASHBURN, [facility], OFFICE [address] [place] [address] [id number] 6 08/15/2018 10:58:18 08/17/2018 10:19:57 Adult health examination 501361367 Z00.00 Counseling 015121959 Z71 .9 Depression screening 171 039650 Z13.89 Hypertensive disorder 38 213535 I10 Hypothyroidism 55946851 E03.9 Fatigue 36752976 R53.83 [id number] Eladio WASHBURN, [facility], OFFICE [address] [place] [address] [id number] 6 09/11/2018 08:54:39 09/11/2018 10:28:19 Osteoporosis 28530029 M81.0 Headache 80349960 R51 [id number] Eladio WASHBURN, [facility], OFFICE [address] [place] [address] [id number] 6 03/07/2019 10:05:43 03/07/2019 10:46:25 Osteoporosis 36695887 M81.0 Hypertensive disorder 38 599407 I10 Hypothyroidism 09817887 E03.9 Gastroesop hageal reflux disease 776737206 K21.9 [id number] Eladio WASHBURN, [facility], OFFICE [address] [place] [address] [id number] 6 04/17/2019 15:37:54 04/18/2019 15:24:48 Contact dermatitis 66474019 L25.9 [id number] Eladio WASHBURN, [facility], OFFICE [address] [place] [address] [id number] 6 05/02/2019 09:12:16 05/02/2019 09:50:56 Eczema 37370857 L30.9 Neoplasm o f uncertain behavior of skin 08373604 D48.5 [id number] Eladio WASHBURN, [facility], OFFICE [address] [place] [address] [id number] 6 08/08/2019 11:29:11 08/09/2019 13:49:07 Eruption [id number] R21 [id number] Eladio WASHBURN, [facility], OFFICE [address] [place] [address] [phone] 6 09/24/2019 09:34:03 09/24/2019 11:09:38 Adult health examination 166714243 Z00.00 Counseling 340414875 Z71 .9 Depression screening 171 383045 Z13.89 Screening for alcohol abuse 907411525 Z13.39 Mixed hyperlipidemia 267 325262 E78.2 Essential hypertension 77611178 I10 Headache 85928779 R51 Screening for malignant neoplasm of colon 133959070 Z12.11 Hypothyroidism 51835474 E03.9 [id number] Eladio Chapin , [facility], OFFICE [address] [place] [address] [id number] 6 03/16/2020 09:20:15 03/17/2020 11:01:40 Hypertensive disorder 25345111 I10 Mixed hyperlipidemia 267 738775 E78.2 [id number] Eladio WASHBURN, [facility], OFFICE [address] [place] [address] [id number] 6 09/30/2020 10:53:12 09/30/2020 11:56:21 Adult health examination 705014181 Z00.00 Counseling 751415478 Z71 .9 Depression screening 171 708687 Z13.31 Screening for alcohol abuse 910266627 Z13.39 Essential hypertension 73298465 I10 Advance di rective discussed with patient 229653909 Z71.89 Mixed hyperlipidemia 267 361333 E78.2 Headache 95236141 R51.9 Hypothyroidism 27418200 E03.9 Osteoporosis 32360823 M8 1.0 Hypokalemia 33520467 E87 .6 Screening for malignant neoplasm of colon 139204382 Z12.11 Active or passive immunization 857771736 Z23 [id number] Eladio WASHBURN, [facility], OFFICE [address] [place] [address] [id number] 6 03/08/2021 09:10:48 03/08/2021 09:54:04 Hypertensive disorder 78224564 I10 Hypokalemia 38963676 E87 .6 Mixed hyperlipidemia 267 841119 E78.2 [id number] Eladio WASHBURN, [facility], OFFICE [address] [place] [address] [id number] 6 05/13/2021 08:11:20 05/13/2021 08:48:44 Essential hypertension 42161628 I10 Active or passive immunization 541665700 Z23 [facility] for cardiovascular event 184714280 Z91.89 Hypothyroidism 81326887 E03.9 Headache 18997084 R51.9 [id number] Eladio Chapin , [facility], OFFICE [address] [place] [address] [id number] 6 01/13/2022 13:18:56 01/13/2022 14:09:31 Adult health examination 671433994 Z00.00 Counseling 553525757 Z71 .9 Depression screening 171 982999 Z13.31 Screening for alcohol abuse 511205015 Z13.39 Advance di rective discussed with patient 200344829 Z71.89 Essential hypertension 99997548 I10 Active or passive immunization 014470105 Z23 Hypothyroidism 76356171 E03.9 Acquired t manager assurance finger of right ring finger 0141580028 31917 M65.341 Migraine 51937420 G43.90 [id number] MD MADDISON Melo, [facility], OFFICE [address] [place] [address] [id number] 6 04/19/2022 08:20:34 04/20/2022 08:38:43 Active or passive immunization 752970813 Z23 Hypertensive disorder 38 744812 I10 Itching of eye 98376211 L29.8 [id number] Eladio Chapin , [facility], OFFICE [address] [place] [address] 95271-897 6 07/27/2022 07:51:34 07/27/2022 08:16:20 Essential hypertension 82473186 I10 Active or passive immunization 689573048 Z23 Neoplasm o f uncertain behavior of skin 48910592 D48.5 Hypothyroidism 80249333 E03.9 Acquired t manager assurance finger of right ring finger 0362711613 60620 M65.088 [id number] Eladio Chapin , [facility], OFFICE [address] [place] [address] 6 01/17/2023 09:39:18 01/17/2023 11:02:22 Adult health examination 003610688 Z00.00 Depression screening 171 733024 Z13.31 Screening for alcohol abuse 244656414 Z13.39 Advance di rective discussed with patient 713559705 Z71.89 Counseling 462939012 Z71 .9 Essential hypertension 71368469 I10 Active or passive immunization 963802750 Z23 Hypothyroidism 86671983 E03.9 Migraine 64351280 G43.90 9 Counseled by member of primary health care team 055109314 Z71.9 Screening mammography 24 871072 Z12.31 [id number] Eladio Chapin , [facility], OFFICE [address] [place] [address] 6 07/18/2023 08:10:03 07/18/2023 09:02:21 Active or passive immunization 581166802 Z23 Essential hypertension 00376422 I10 Hypothyroidism 81404935 E03.9 Migraine 63929196 G43.90 9 Screening mammography 24 438765 Z12.31 [id number] Eladio WASHBURN, [facility], OFFICE [address] [place] [address] 6 02/20/2024 08:24:27 02/20/2024 09:06:19 Adult health examination 237580109 Z00.00 Depression screening 171 146734 Z13.31 Screening for alcohol abuse 852743154 Z13.39 Active or passive immunization 021959543 Z23 Advance di rective discussed with patient 980852494 Z71.89 Counseling 430224089 Z71 .9 Essential hypertension 40622546 I10 Hypothyroidism 49508943 E03.9 Migraine 51855775 G43.90 9 Counseled by member of primary health care team 414719437 Z71.9 Screening mammography 24 368440 Z12.31 Osteoporosis 38217107 M8 1.0 Hyperlipidemia 33198299 E78.2 Health Concerns Section Related Observation LastModified by Organization Detai ls LastModified Time None Recorded Concern Status LastModified by Organization Details LastModified Time None Recorded Advance Directives Directive None Recorded Payers Encounter Date Sequence Insurance Name Policy Number Policy Crook Covered Member ID Crook Member ID Guarantor Name 04/19/2022 1 [place] HMO) [id number] Kori Brown [id number] Kori Brown 07/27/2022 1 [place]) [id number] Kori Brown [id number] Kori Brown 01/17/2023 1 [place] HMO) [id number] Kori Brown [id number] Kori Brown 07/18/2023 1 [facility]: [place] H[place] BLUE (MEDICARE REPLACEMENT HMO) [id number] Kori Brown [id number] Kori Brown 02/20/2024 [facility] (MEDICARE REPLACEMENT HMO) [id number] Kori Brown [id number] Kori Brown Notes Date Note Type Note Provider Name and Address Organization Details Recorded Time 3 text/html 04/19/22-66 y/o female presents for eye irritation.reports dry eyes to begin with, uses eye drops and compresses with reliefaround thanksgiving noticed eyelid dryness L>Rtried Vaseline, tea tree oil without much changenow eye lids more itchy, red, ? swollenhas appt with eye doctor in May for routine examno eye pain, feels like vision is generally okay Svitlana Masterson MD [address] [place] [address], [phone], [facility] 04/19/2022 14:23:57 3 text/html VMG HypertensionReported bypatient.Duration:ASCVD 10-year risk (currently 8.7%) Context:No ischemic heart disease; No kidney disease; No history of CVA; No congestive heart failure; No history of transient ischemic attacks; No peripheral vascular disease; No history of diabetes Control:Patient understands medications are to lower blood pressure Compliance:Compliant with medications; Compliant with diet Barriers to CareNo identified barriers to care Self Care:Using home BP monitor occasionally home BPs range 120-130/80-85 Associated Symptoms:No chest pain; No shortness of breath; No edema; No fatigue; No palpitations; No decline in exercise capacity; No snoring Pt comes in today for f/u HTN but also f/u migraine. Pt is trying to taper down off topiramate. She is down to MWF whole pill, 1/2 pill the rest of the days; this seems to be where she has settled out for now; any less and she'll have headaches again. Pt also c/o trigger finger R fourth finger; she had an injection from Dr. Walters with only partial results but pt feels she did it differently than Dr. Evangelista in the past. Eladio Chapin [address] [place] [address], [phone], [facility] 08/01/2022 13:37:16 3 text/html Physical Exam/FemaleReported bypatient.PHAPatient is here for a Wellness Visit. She describes her health status as good. Patient's health is the same as last year.Risk Assessment and Lifestyle Change Counseling 65+ (Medicare)Reported bypatient.Coronary Artery Disease Risk Assessment:Family History of Coronary Artery Disease(aunt); No personal history of diabetes; No history of peripheral vascular disease, AAA, or carotid disease; No personal history of coronary artery disease Breast Cancer Risk Assessment:No family history of breast cancer; No history of breast cancer or dcis Colon Cancer Risk Assessment:No family history of pre cancerous colon polyps or cancer Lung Cancer Risk Assessment:Current smoker;Has used cigarettes less than 30 pack years;Former smoker quit more than 15 years ago(1984); No asbestos exposure Cognitive/Behavioral Risk Assessment:No personal history of mental illness; No family history of mental illness Safety Risk Assessment:No grab bars in bathroom; Has rails on steps; No falls; No evidence of abuse/neglect Functional Status:Patient does not have trouble hearing the television or radio when others do not.; Patient does not have to strain or struggle to hear/understand conversations; Patient does not need help with preparing meals, transportation, shopping, taking medicine, managing finances, or other activities of daily living.; Patient does not have visual loss that interferes with daily activities;Lives alone; Patient was not unsteady and did not take longer than 30 seconds during the timed get up and go test.; Patient reports no falls in the past 6 months. Diet:Counseled about appropriate portion size; Counseled about eating a diet low in trans and saturated fats and high in fiber, fruits and vegetables Exercise counseling:Discussed the importance of daily physical activityVMG HypertensionReported bypatient.Duration:ASCVD 10-year risk (currently 8.7%) Context:No ischemic heart disease; No kidney disease; No history of CVA; No congestive heart failure; No history of transient ischemic attacks; No peripheral vascular disease; No history of diabetes Control:Patient understands medications are to lower blood pressure Compliance:Compliant with medications; Compliant with diet Barriers to CareNo identified barriers to care Self Care:Using home BP monitor occasionally home BPs range 120-130/80-85 Associated Symptoms:No chest pain; No shortness of breath; No edema; No fatigue; No palpitations; No decline in exercise capacity; No snoring Pt comes in today for wellness visit but also f/u migraine. Pt is taking topiramate regularly, although she keeps trying to taper down (MWF whole pill, 1/2 pill the rest o fthe days). Pt comes in today for wellness visit as well as f/u. Pt carries diagnosis of osteoporosis although recent BMD is osteopenic. She is not on medication but managing with calcium, vitamin D and weight-bearing exercise. Last BMD 2020. Eladio Chapin [address] [place], [phone], [facility] 01/17/2023 11:00:00 4 text/html VMG HypertensionReported bypatient.Duration:ASCVD 10-year risk (currently 8.7%) Context:No ischemic heart disease; No kidney disease; No history of CVA; No congestive heart failure; No history of transient ischemic attacks; No peripheral vascular disease; No history of diabetes Control:Patient understands medications are to lower blood pressure Compliance:Compliant with medications; Compliant with diet Barriers to CareNo identified barriers to care Self Care:Using home BP monitor occasionally home BPs range 120-130/80-85 Associated Symptoms:No chest pain; No shortness of breath; No edema; No fatigue; No palpitations; No decline in exercise capacity; No snoring Pt comes in today for follow-up HTN and migraine. She is currently taking 12.5mg topiramate daily (very slow taper), which seems to be keeping things in check. She may try skipping one day weekly to see how that goes. Pt c/o hyperlipidemia. She feels that her diet hasn't been as healthy as usual as she had to be on a different diet. LDL has gone from 140 to 185 due to dental work (for implants). Eladio Chapin [address] [place], [phone], [facility] 07/18/2023 09:01:42 4 text/html Physical Exam/FemaleReported bypatient.PHAPatient is here for a Wellness Visit. She describes her health status as good. Patient's health is the same as last year.Risk Assessment and Lifestyle Change Counseling (Medicare)Reported bypatient.Coronary Artery Disease Risk Assessment:Family History of Coronary Artery Disease(aunt); No personal history of diabetes; No history of peripheral vascular disease, AAA, or carotid disease; No personal history of coronary artery disease Breast Cancer Risk Assessment:No family history of breast cancer; No history of breast cancer or dcis Colon Cancer Risk Assessment:No family history of pre cancerous colon polyps or cancer Lung Cancer Risk Assessment:Current smoker;Has used cigarettes less than 30 pack years;Former smoker quit more than 15 years ago(1984); No asbestos exposure Cognitive/Behavioral Risk Assessment:No personal history of mental illness; No family history of mental illness Safety Risk Assessment:No grab bars in bathroom; Has rails on steps; No falls; No evidence of abuse/neglect Functional Status:Patient does not have trouble hearing the television or radio when others do not.; Patient does not have to strain or struggle to hear/understand conversations; Patient does not need help with preparing meals, transportation, shopping, taking medicine, managing finances, or other activities of daily living.; Patient does not have visual loss that interferes with daily activities;Lives alone; Patient was not unsteady and did not take longer than 30 seconds during the timed get up and go test.; Patient reports no falls in the past 6 months. Diet:Counseled about appropriate portion size; Counseled about eating a diet low in trans and saturated fats and high in fiber, fruits and vegetables Exercise counseling:Discussed the importance of daily physical activityVMG HypertensionReported bypatient.Duration:ASCVD 10-year risk (currently 8.7%) Context:No ischemic heart disease; No kidney disease; No history of CVA; No congestive heart failure; No history of transient ischemic attacks; No peripheral vascular disease; No history of diabetes Control:Patient understands medications are to lower blood pressure Compliance:Compliant with medications; Compliant with diet Barriers to CareNo identified barriers to care Self Care:Using home BP monitor occasionally home BPs range 120-130/80-85 Associated Symptoms:No chest pain; No shortness of breath; No edema; No fatigue; No palpitations; No decline in exercise capacity; No snoring Pt comes in today for wellness visit but also c/o hyperlipidemia. Her sister has tried multiple statin medications with significant muscle side effects despite taking coenzyme Q10; at one point she couldn't even stand up off the toiler. Pt is very leery about trying to take a medication and would rather be careful with diet and exercise. Pt also here for f/u migraine. She is down to topiramate 12.5mg (half tablet) five days a week (she skips two days of the week). Pt c/o osteoporosis. She is not on medication, but is taking vitamin D, getting calcium, and weight bearing exercise. Last BMD 2020. Eladio Chapin [address] [place] [address], [place], [phone], [facility] 02/20/2024 09:03:15 OBGyn Episode No OBEpisode recorded.
== END 2024-04-05 08:25 | disposition home or self-care (01) ==
LOC: HO.MAMMO 08:24
PROVIDERS: PCP Family Medicine; Visit Provider Family Medicine
DX: M81.0 Age-related osteoporosis without current pathological fracture (principal)
CPT/HCPCS: 77080

== ENCOUNTER → 2024-04-05 08:45 | Outpatient (BNV) | payer MEDICARE, SELFPAY | PROVIDERS: PCP Family Medicine; Visit Provider Radiology Diagnostic Radiology | DX: E28.39 Other primary ovarian failure (principal) | CPT/HCPCS: 77080 ==

== ENCOUNTER 2025-02-12 07:54 | Outpatient (REF) | payer MEDICARE, SELFPAY ==
--- OUTSIDE RECORDS SUMMARY | 2025-02-12 07:57 | XMS_ITS | Encounter Summary ---
Author Organization [facility] Address [address] [place] [address] Phone Care Team Providers Care Law Clerk Name Role Phone Jaycee Chapin MD Primary Care Provider [phone] Encounter Details Date Type Department Care Team (Late st Contact Info) Description 01/05/2021 Procedure Pass [facility]oscopy Admitting Dept [facility] Department [address] [place] [phone] Social History Tobacco Use Types Packs/Day Years Used Date Smoking Tobacco: Former Cigarettes Q uit: 1985 Smokeless Tobacco: Former Alcohol Use Standard Drinks/Week Comments Yes 0 (1 standard drink = 0.6 oz pur e alcohol) rare Comments Unknown Sex and Gender Information Value Date Recorded Sex Assigned at Not on file Legal Sex Female 9:58 PM EDT Gender Identity Not on file Sexual Orientation Not on file documented as of this encounter Plan of Treatment Not on file documented as of this encounter Visit Diagnoses Not on filedocumented in this encounter Care Teams Law Clerk Relationship Specialty Start Date End Date Jaycee Chapin MD PCP - General 04/06/17 documented as of this encounter Additional Source Comments The information contained in this document represents components of the legal health record. It is not the complete legal health record.[facility]
--- OUTSIDE RECORDS SUMMARY | 2025-02-12 07:57 | XMS_ITS | Clinical Summary ---
Author Organization [facility] Address [address] [place] [address] [place], [place] [id number] Phone Care Team Providers Care Telecommunication Tower Technician Name Role Phone Jaycee Chapin MD Primary Care Provider Allergies Active Allergy Reactions Criticality Noted Date Comments Nickel Rash Low 01/01/2021 Medications topiramate (TOPAMAX) 50 MG tablet Take 25 mg by mouth daily. Orally at bedtime - patient weaning down Active levothyroxine (SYNTHROID, LEVOTHROID) 88 MCG tablet Take 88 mcg by mouth every morning. Active cholecalciferol (VITAMIN D3) 2,000 unit capsule Take 3,000 Units by mouth daily. Active acetaminophen (TYLENOL) 500 MG tablet Take 500 mg by mouth every 6 (six) hours as needed for pain (specific location in comments). Active lisinopril (PRINIVIL,ZESTR IL) 10 MG tablet Take 1 tablet by mouth every morning. 07/28/2022 Active Active Problems No known active problems Family History Medical History Relation Comments Cancer Brother Liver disease Father Relation Status Comments Brother Father Social History Tobacco Use Types Packs/Day Years Used Date Smoking Tobacco: Former Cigarettes Q uit: 1985 Smokeless Tobacco: Former Alcohol Use Standard Drinks/Week Comments Yes 0 (1 standard drink = 0.6 oz pur e alcohol) rare Education Answer Date Recorded Are you interested in more education? Not on bennie e 07/29/2022 Are you concerned about learning? Not on file 07/29/2022 No 07/29/2022 No 07/29/2022 Digital Access Answer Date Recorded No 08/29/2022 No 08/29/2022 Reliable internet access at home? Not on file 08/29/2022 Device with a working camera? Not on file Comments Unknown Sex and Gender Information Value Date Recorded Sex Assigned at Not on file Legal Sex Female 9:58 PM EDT Gender Identity Not on file Sexual Orientation Not on file Last Filed Vital Signs Vital Sign Reading Time Taken Comments Blood Pressure 133/70 01/05/2021 9:03 AM EDT Pulse 69 01/05/2021 9:03 AM EDT Temperature 36 C (96.8 F) 01/05/2021 8:48 AM EDT Respiratory Rate 18 01/05/2021 9:03 AM EDT Oxygen Saturation 99% 01/05/2021 9:03 AM EDT Inhaled Oxygen Concentration - - Weight 47.6 kg (105 lb) 01/01/2021 2:48 PM EDT Height 152.4 cm (5') 01/01/2021 2:48 PM EDT Body Mass Index 20.51 01/01/2021 2:48 PM EDT Plan of Treatment Health Maintenance Due Date Last Done Comments CREATININE LEVEL 1953 LIPID PANEL 1953 POTASSIUM LEVEL 1953 TSH LEVEL 1953 DEPRESSION SCREENING 1965 SMOKING Hx and SMOKELESS TOBACCO SCREENING 1966 HEPATITIS C SCREENING 1971 MAMMOGRAM 1993 COLOGUARD 1998 FIT TEST 1998 FOBT 1998 SIGMOIDOSCOPY 1998 VIRTUAL COLONOSCOPY 1998 ZOSTER VACCINES (2 of 3) 07/05/2016 05/10/2016 OSTEOPOROSIS SCREENING INITIAL (ONE-TIME) 2018 INFLUENZA VACCINE (#1) 2024 2, 12/07/2020, 12/05/2019, Additional history exists COVID-19 VACCINE ( season) 2024 01/29/2021, 07/09/2020, 06/18/2020 RSV VACCINE (1 - 1-dose 75+ series) 2028 COLONOSCOPY 01/05/2031 01/05/2021 COLORECTAL CANCER SCREENING 01/05/2031 Adult Td,Tdap Booster 05/13/2031 05/13/2021, 012 PNEUMOCOCCAL VACCINES (50+ years) Completed 09/30/2020, 07/25/2018 HEPATITIS A VACCINES Aged Out No long er eligible based on patient's age to complete this topic HIB VACCINES Aged Out No longer eligi ble based on patient's age to complete this topic IPV VACCINES Aged Out No longer eligi ble based on patient's age to complete this topic MENINGOCOCCAL VACCINES (ACWY) Aged Out No longer eligible based on patient's age to complete this topic MENINGOCOCCAL VACCINES (B) Aged Out N o longer eligible based on patient's age to complete this topic Medical Devices Not on file Procedures Procedure Name Priority Date/Time Associated Diagnosis Comments ENDOSCOPY, COLON 01/05/2021 8:25 AM EDT from Last 3 Months or Most Recently Relevant to Health Maintenance Results * ENDOSCOPY, COLON (01/05/2021 8:25 AM EDT) Narrative Transcriptions Mehran Tabor MD - 01/05/2021 8:25 AM EDT Patient Name: Kori Brown Attending MD:: MEHRAN TABOR MD, Procedure Date: 01/05/2021 8:25 AM Date of : 1955 Age: 65 Admit Type: Outpatient Gender: Female Room: [facility] Referring MD: Jaycee Chapin MD Exam Type: Colonoscopy Indications: Screening for colorectal malignant neoplasm Medications: Monitored Anesthesia Care Procedure: Informed consent was obtained from the patient after discussion of the indications, limitations, alternatives, benefits, and risks of the procedure. Risks specifically discussed include but are not limited to medication reactions, missed lesions, bleeding, perforation, or the need for emergentsurgery. Throughout the procedure, the patient's bloodpressure, pulse, end-tidal CO2, and oxygen saturations were monitored continuously. The Olympus pediatric variable colonoscopePCF-[id number] #5 was introduced through the anus and advanced tothe cecum, identified by appendiceal orifice andileocecal valve. The colonoscopy was performed without difficulty. The patient tolerated the procedurewell. The quality of the bowel preparation was excellent.The quality of the bowel preparation was evaluated using the BBPS ([place] Bowel Preparation Scale) withscores of: Right Colon = 3, Transverse Colon = 3 and Left Colon = 3 (entire mucosa seen well with no residual staining, small fragments of stool or opaqueliquid). The total BBPS score equals 9. Complications: No immediate complications. Estimated blood loss: Minimal. Findings: The perianal and digital rectal examinations were normal. A 3 mm polyp was found in the ascending colon. The polyp was sessile. The polyp was removed with a cold snare. Resection and retrieval were complete. A few small-mouthed diverticula were found in the sigmoid colon. Internal hemorrhoids were found during retroflexion. The hemorrhoids were mild. The exam was otherwise normal throughout theexamined colon. Impression: - One 3 mm polyp in the ascending colon, removedwith a cold snare. Resected and retrieved. - Diverticulosis in the sigmoid colon. - Internal hemorrhoids. Recommendation: - Discharge patient to home. - Await pathology results. MEHRAN TABOR MD, 01/05/2021 8:54:25 AM This report has been signed electronically. Number of Addenda: 0 Note Initiated On: 01/05/2021 8:25 AM Procedure Code(s): --- Professional --- 30865, Colonoscopy, flexible; with removal of tumor(s), polyp(s), or other lesion(s) by snare technique --- Technical --- 57790, Colonoscopy, flexible; with removal of tumor(s), polyp(s), or other lesion(s) by snare technique Diagnosis Code(s): --- Professional --- Z12.11, Encounter for screening for malignantneoplasm of colon D12.2, Benign neoplasm of ascending colon K64.8, Other hemorrhoids K57.30, Diverticulosis of large intestine without perforation or abscess without bleeding --- Technical --- Z12.11, Encounter for screening for malignantneoplasm of colon D12.2, Benign neoplasm of ascending colon K64.8, Other hemorrhoids K57.30, Diverticulosis of large intestine without perforation or abscess without bleeding CPT copyright 2018 [employer]. All rights reserved. The codes documented in this report are preliminary and upon drapery estimator reviewmay be revised to meet current compliance requirements. Procedure Date: 01/05/2021 8:25:18 AM [address] [place] [address] Jaycee Chapin MD GI PROCEDURE ORDERABLES Fin al Result from Last 3 Months or Most Recently Relevant to Health Maintenance Insurance MEDICARE HMO BLUE REPLACEMENT MEDICARE O BLUE [place] [address] [place] [address] MEDICARE HMO BLUE [place]PLAC[place] [address] [place] [address] MEDICARE HMO BLUE [place]PLAC[place] [address] [address] MEDICARE HMO BLUE REPLACEMENT Member Subscriber Plan / Payer (Ef fective 2018-Present) Name:Kori Brown Relation to Subscriber:Self Name:Kori Brown Payer ID:[id number] (NAIC) Type:Medicare Address: [place] [id number] MEDICARE HMO BLUE REPLACEMENT MEDICARE HMO BLUE REPLAC[place] [address] [address] MEDICARE HMO BLUE REPLACEMENT [place] MEDIC[place] H[place] BLUE REPLACEMENT Care Teams Telecommunication Tower Technician Relationship Specialty Start Date End Date Jaycee Chapin MD [email or web address] PCP - General 04/06/17 Additional Source Comments The information contained in this document represents components of the legal health record. It is not the complete legal health record.[facility]
== END 2025-02-12 07:55 | disposition home or self-care (01) ==
LOC: HO.MAMMO 07:54
PROVIDERS: PCP Family Medicine; Visit Provider Family Medicine
DX: Z12.31 Encounter for screening mammogram for malignant neoplasm of breast (principal)
CPT/HCPCS: 77063; 77067

== ENCOUNTER → 2025-02-12 08:00 | Outpatient (BNV) | payer MEDICARE, SELFPAY | PROVIDERS: PCP Family Medicine; Visit Provider Internal Medicine | DX: Z12.31 Encounter for screening mammogram for malignant neoplasm of breast (principal) | CPT/HCPCS: 77063; 77067 ==